=== PATIENT | male | born 1945 | race African-American/Black ===

== ENCOUNTER 2022-02-06 13:47 | Inpatient (IN) | payer MEDICAID, MEDICARE, OTHER ==
[~2022-02-06 13:47] MED LIST: Heparin 1,000 UNITS/ML VIAL ONE; Iopamidol-370 76% 500 ML 1 ML ONE
[2022-02-06] MEDS ORDERED: Vancomycin 1 GM/200 ML BAG ONE (14:37)
[2022-02-06] MEDS ORDERED: cefTRIAXone\\ROCEPHIN 2 GM VIAL ONE (14:37)
[2022-02-06 14:43] LABS: Mean Corpuscular HGB CONC 30.2 g/dL (32.0-36.0); Mean Corpuscular Hemoglobin 28.8 pg (27.0-31.0); Mean Corpuscular Volume 95.3 fL (78.0-98.0); RBC Distribution Width 14.8 % (11.5-14.5); Red Blood Cell (RBC) Count 4.17 mill/uL (4.70-6.10); White Blood Cell (WBC) Count 7.1 thou/uL (4.8-10.8)
[2022-02-06 14:44] LABS: #Lymphocytes 2.4 thou/uL (1.20-3.40); #Monocytes 0.5 thou/uL (0.11-0.59); #Neutrophils 4.1 thou/uL (1.40-6.50); %Basophils 0.7 % (0.0-1.0); %Eosinophils 0.3 % (0.0-10.0); %Lymphocytes 34.1 % (21.0-51.0); %Monocytes 6.8 % (0.0-10.0); %Neutrophils 58.2 % (42.0-75.0)
[2022-02-06 14:50] LABS: PTT 40.7 sec (22.9-36.1)
[2022-02-06 14:51] LABS: INR-International Normal Ratio 1.7
[2022-02-06 14:53] LABS: ALT (SGPT) 25 U/L (8-55); AST (SGOT) 29 U/L (5-34); Albumin 3.7 g/dL (3.4-4.8); Alkaline Phosphatase 91 U/L (40-110); Anion Gap 12 mmol/L (10-20); BUN (Urea Nitrogen) 19 mg/dL (8.4-25.7); Bilirubin, Total 1.4 mg/dL (0.2-1.2); Calc. Creatinine Clearance 0 mL/min (70-130); Calcium 9.4 mg/dL (7.8-10.44); Carbon Dioxide 22 mmol/L (23-31); Chloride 110 mmol/L (98-107); Estimated GFR 56; Globulin 4.4 g/dL (2.4-3.5); Glucose 88 mg/dL (83-110); Potassium 5.1 mmol/L (3.5-5.1); Protein, Total 8.1 g/dL (5.8-8.1); Sodium 139 mmol/L (136-145)
[2022-02-06 15:02] LABS: Mean Platelet Volume 11.7 fL (7.4-10.4); Platelet Count 161 thou/uL (130-400)
[2022-02-06 15:03] LABS: Large Platelets SLIGHT; MDiff Complete? YES; Platelet Morphology Comment Appears Adequate; RBC Morphology Normal
[2022-02-06 17:19] LABS: Lactic Acid 2.9 mmol/L (0.5-2.2)
[2022-02-06 17:32] LABS: Bilirubin Negative (Negative); Blood, Urine 3+ (Negative); Clarity Clear (Clear); Glucose, Urine (Dipstick) 300 mg/dL (Negative); Ketone, Urine Negative (Negative); Leukocyte Negative Leu/uL (Negative); Nitrite Negative (Negative); Protein, Urine (Dipstick) 50 mg/dL (Neg-Trace); RBC/HPF Greater than 50 HPF (0-3); Squamous Epithelial None Seen HPF (0-3); Urobilinogen 6 mg/dL (Less than 2)
[2022-02-06 17:37] LABS: Bacteria/HPF 1+ HPF (None Seen); Specific Gravity, Urine 1.049 (1.002-1.036)
[2022-02-06] MEDS ORDERED: Acetaminophen 325 MG TAB PO PRN (18:45)
[2022-02-06] MEDS ORDERED: Ondansetron ODT 4 MG TAB SL PRN (18:45)
[2022-02-06] MEDS ORDERED: Ondansetron PF 4 MG/2 ML Vial IVP PRN (18:45)
[2022-02-06] MEDS ORDERED: Lactated Ringer's 250 ML IV SCH (19:15)
[2022-02-06] MEDS ORDERED: Ondansetron ODT 4 MG TAB PO PRN (19:34)
[2022-02-06] MEDS ORDERED: Bisacodyl 5 MG TAB PO PRN (19:34)
[2022-02-06] MEDS ORDERED: Senokot S 8.6-50 MG TAB PO PRN (19:34)
[2022-02-06 20:25] LABS: SARS-CoV-2 NAA Rapid Test Not Detected (NotDetected)
[2022-02-06] MEDS: Famotidine/PF 20 mg/2ml Vial SLOW IVP SCH (20:25)
[2022-02-06] MEDS: Lactated Ringer's 1,000 ML IV SCH (20:26)
[2022-02-06] MEDS: Famotidine 20 MG TAB PO SCH (21:01)
[2022-02-07] MEDS: Lactated Ringer's 1,000 ML IV SCH (03:28)
[2022-02-07 06:24] LABS: Hemoglobin 10.8 g/dL (14.0-18.0); Mean Corpuscular HGB CONC 30.1 g/dL (32.0-36.0); Mean Corpuscular Volume 96.5 fL (78.0-98.0); Mean Platelet Volume 12.3 fL (7.4-10.4); Platelet Count 122 thou/uL (130-400); RBC Distribution Width 14.9 % (11.5-14.5); Red Blood Cell (RBC) Count 3.72 mill/uL (4.70-6.10); White Blood Cell (WBC) Count 6.6 thou/uL (4.8-10.8)
[2022-02-07 06:57] LABS: ALT (SGPT) 24 U/L (8-55); AST (SGOT) 45 U/L (5-34); Albumin 2.6 g/dL (3.4-4.8); Alkaline Phosphatase 69 U/L (40-110); Anion Gap 16 mmol/L (10-20); BUN (Urea Nitrogen) 19 mg/dL (8.4-25.7); Bilirubin, Total 0.7 mg/dL (0.2-1.2); Calc. Creatinine Clearance 42 mL/min (70-130); Calcium 8.3 mg/dL (7.8-10.44); Carbon Dioxide 13 mmol/L (23-31); Chloride 114 mmol/L (98-107); Estimated GFR 72; Globulin 4.3 g/dL (2.4-3.5); Glucose 63 mg/dL (83-110); Potassium 5.2 mmol/L (3.5-5.1); Protein, Total 6.9 g/dL (5.8-8.1); Sodium 138 mmol/L (136-145)
[2022-02-07] MEDS ORDERED: Vancomycin 1 GM in Premix Bag 1 BAG IVPB SCH (08:00)
[2022-02-07 08:47] LABS: Actual Bicarbonate (HCO3v) 18 mEq/L (22-28); Base Excess -4.3 mEq/L (-2.0 to +3.0); Calcium, Ionized (venous) 0.97 mmol/L (1.16-1.32); Chloride (VBG) 111 mmol/L (98-106); Hemoglobin (Hb) 12.5 g/dL (12.6-17.4); Potassium (VBG) 4.28 mmol/L (3.70-5.30); Sodium 139.9 mmol/L (133-146); pH (venous) 7.45 (7.32-7.43)
[2022-02-07 09:10] LABS: CK (CPK) 80 U/L (30-200); Phosphorus 2.9 mg/dL (2.3-4.7)
[2022-02-07] MEDS: Cefepime 2 GM in Sodium Chloride 0.9% 100 ML IVPB SCH ×2 (09:13→20:17)
[2022-02-07] MEDS: metroNIDAZOLE 500 MG in Premix Bag 1 BAG IVPB SCH ×2 (09:14→17:58)
[2022-02-07 09:15] LABS: Lactic Acid 2.1 mmol/L (0.5-2.2)
[2022-02-07] MEDS: Aspirin 300 MG Suppository PR SCH (09:15)
[2022-02-07] MEDS ORDERED: Sodium Bicarb 50 MEQ/50 ML Abboject 8.4% SYRINGE IVP SCH (09:15)
[2022-02-07] MEDS ORDERED: Multivitamins, Adult 10 ML, Folic Acid 1 MG, Thiamine HCl 100 MG in Dextrose 5 %-0.45 %... IV SCH (10:00)
[2022-02-07] MEDS: Vancomycin HCl 750 MG in Sodium Chloride 0.9% 250 ML 250 ML IVPB SCH (11:17)
[2022-02-07 14:47] LABS: Anion Gap 12 mmol/L (10-20); BUN (Urea Nitrogen) 19 mg/dL (8.4-25.7); Calc. Creatinine Clearance 41 mL/min (70-130); Calcium 8.4 mg/dL (7.8-10.44); Carbon Dioxide 23 mmol/L (23-31); Chloride 110 mmol/L (98-107); Estimated GFR 69; Glucose 87 mg/dL (83-110); Potassium 4.1 mmol/L (3.5-5.1); Sodium 141 mmol/L (136-145)
[2022-02-07] MEDS ORDERED: D5 1/2 NS w/20 mEq KCL 1,000 ML IV SCH (18:00)
[2022-02-07] MEDS ORDERED: Sterile Water 10 ML VIAL FS PRN (19:45)
[2022-02-07] MEDS ORDERED: OLANZapine 10 MG VIAL IM SCH (19:45)
[2022-02-07] MEDS: Heparin 5,000 UNITS/ML VIAL SC SCH (20:19)
[2022-02-07] MEDS: Famotidine/PF 20 mg/2ml Vial SLOW IVP SCH (20:20)
[2022-02-07] MEDS: Famotidine 20 MG TAB PO SCH (20:22)
[2022-02-08] MEDS: metroNIDAZOLE 500 MG in Premix Bag 1 BAG IVPB SCH ×2 (02:27→09:33)
[2022-02-08 06:13] LABS: #Basophils 0.1 thou/uL (0.0-0.2); #Lymphocytes 2.3 thou/uL (1.20-3.40); #Monocytes 0.7 thou/uL (0.11-0.59); #Neutrophils 4.7 thou/uL (1.40-6.50); %Basophils 1.2 % (0.0-1.0); %Eosinophils 0.3 % (0.0-10.0); %Lymphocytes 29.6 % (21.0-51.0); %Monocytes 8.8 % (0.0-10.0); %Neutrophils 60.2 % (42.0-75.0); Hemoglobin 11.3 g/dL (14.0-18.0); Mean Corpuscular HGB CONC 29.8 g/dL (32.0-36.0); Mean Corpuscular Hemoglobin 28.9 pg (27.0-31.0); Mean Platelet Volume 12.6 fL (7.4-10.4); Platelet Count 76 thou/uL (130-400); Red Blood Cell (RBC) Count 3.92 mill/uL (4.70-6.10); White Blood Cell (WBC) Count 7.8 thou/uL (4.8-10.8)
[2022-02-08 06:30] LABS: ALT (SGPT) 29 U/L (8-55); AST (SGOT) 45 U/L (5-34); Alkaline Phosphatase 68 U/L (40-110); Anion Gap 17 mmol/L (10-20); BUN (Urea Nitrogen) 19 mg/dL (8.4-25.7); Bilirubin, Total 1.1 mg/dL (0.2-1.2); Calc. Creatinine Clearance 38 mL/min (70-130); Calcium 8.3 mg/dL (7.8-10.44); Carbon Dioxide 15 mmol/L (23-31); Chloride 112 mmol/L (98-107); Estimated GFR 64; Globulin 4.4 g/dL (2.4-3.5); Glucose 102 mg/dL (83-110); Magnesium 2.1 mg/dL (1.6-2.6); Phosphorus 2.9 mg/dL (2.3-4.7); Potassium 4.9 mmol/L (3.5-5.1); Protein, Total 7.4 g/dL (5.8-8.1); Sodium 139 mmol/L (136-145)
[2022-02-08] MEDS ORDERED: Sodium Bicarbonate 150 MEQ in Dextrose 5% in Water 1,000 ML IV SCH ×2 (08:00→14:00)
[2022-02-08] MEDS: Cefepime 2 GM in Sodium Chloride 0.9% 100 ML IVPB SCH (09:24)
[2022-02-08] MEDS: Heparin 5,000 UNITS/ML VIAL SC SCH (09:24)
[2022-02-08] MEDS: Aspirin 300 MG Suppository PR SCH (09:25)
[2022-02-08] MEDS ORDERED: Aspirin 81 mg Enteric Coated Tablet PO SCH (12:00)
[2022-02-08] MEDS: Vancomycin HCl 750 MG in Sodium Chloride 0.9% 250 ML 250 ML IVPB SCH (12:12)
[2022-02-08] MEDS ORDERED: metroNIDAZOLE 500 MG TAB PO SCH ×2 (15:00→18:00)
[2022-02-08] MEDS ORDERED: Piperacillin/Tazobactam 3.375 GM in Sodium Chloride 0.9% 100 ML IVPB SCH ×2 (17:30→17:45)
[2022-02-08] MEDS ORDERED: Mirtazapine 15 MG Soltab PO SCH (21:00)
[2022-02-08] MEDS: Piperacillin/Tazobactam 3.375 GM in Sodium Chloride 0.9% 100 ML IVPB SCH (21:03)
[2022-02-09] MEDS: Piperacillin/Tazobactam 3.375 GM in Sodium Chloride 0.9% 100 ML IVPB SCH ×3 (04:37→21:08)
[2022-02-09 08:08] LABS: INR-International Normal Ratio 1.8; PTT 28.8 sec (22.9-36.1)
[2022-02-09] MEDS ORDERED: Non-Formulary Item 1 EACH (Loratadine [Claritin] 10 MG Capsule) PO SCH (09:00)
[2022-02-09] MEDS ORDERED: Non-Formulary Item 1 EACH (Omeprazole [Omeprazole] 20 MG Capsule.Dr) PO SCH (09:00)
[2022-02-09 09:12] LABS: Albumin 2.8 g/dL (3.4-4.8)
[2022-02-09 09:13] LABS: Chloride 112 mmol/L (98-107); Sodium 138 mmol/L (136-145)
[2022-02-09 09:14] LABS: Calcium 8.3 mg/dL (7.8-10.44); Glucose 76 mg/dL (83-110)
[2022-02-09 09:15] LABS: Globulin 3.8 g/dL (2.4-3.5); Protein, Total 6.6 g/dL (5.8-8.1)
[2022-02-09 09:16] LABS: Anion Gap 13 mmol/L (10-20); Bilirubin, Total 0.7 mg/dL (0.2-1.2); Carbon Dioxide 17 mmol/L (23-31)
[2022-02-09 09:17] LABS: Alkaline Phosphatase 73 U/L (40-110)
[2022-02-09 09:18] LABS: Calc. Creatinine Clearance 42 mL/min (70-130); Estimated GFR 72
[2022-02-09 09:19] LABS: BUN (Urea Nitrogen) 18 mg/dL (8.4-25.7)
[2022-02-09 09:20] LABS: ALT (SGPT) 30 U/L (8-55); AST (SGOT) 41 U/L (5-34)
[2022-02-09] MEDS: Aspirin 81 mg Enteric Coated Tablet PO SCH (09:23)
[2022-02-09] MEDS: Loratadine 10 MG TAB PO SCH (09:24)
[2022-02-09 09:25] LABS: #Basophils 0.1 thou/uL (0.0-0.2); #Eosinphils 0.1 thou/uL (0.0-0.7); #Lymphocytes 2.1 thou/uL (1.20-3.40); #Monocytes 0.9 thou/uL (0.11-0.59); #Neutrophils 5.8 thou/uL (1.40-6.50); %Basophils 0.6 % (0.0-1.0); %Eosinophils 0.8 % (0.0-10.0); %Lymphocytes 23.1 % (21.0-51.0); %Monocytes 9.9 % (0.0-10.0); %Neutrophils 65.6 % (42.0-75.0); Hemoglobin 10.7 g/dL (14.0-18.0); Mean Corpuscular HGB CONC 29.5 g/dL (32.0-36.0); Mean Corpuscular Hemoglobin 28.4 pg (27.0-31.0); Mean Corpuscular Volume 96.3 fL (78.0-98.0); Mean Platelet Volume 12.4 fL (7.4-10.4); Platelet Count 117 thou/uL (130-400); RBC Distribution Width 14.9 % (11.5-14.5); Red Blood Cell (RBC) Count 3.78 mill/uL (4.70-6.10); White Blood Cell (WBC) Count 8.9 thou/uL (4.8-10.8)
[2022-02-09] MEDS: THIAMINE HCL IV SCH (11:54)
[2022-02-09] MEDS: [UNRECOGNIZED DRUG - OTHER] IV SCH (11:54)
[2022-02-09] MEDS: MULTIVITAMINS IV SCH (11:54)
[2022-02-09] MEDS: SODIUM BICARBONATE IV SCH (11:54)
[2022-02-09] MEDS: Budesonide 0.5 MG/2 ML NEB NEB SCH (18:54)
[2022-02-09] MEDS: Mirtazapine 30 MG Soltab PO SCH (20:04)
[2022-02-10] MEDS: Piperacillin/Tazobactam 3.375 GM in Sodium Chloride 0.9% 100 ML IVPB SCH ×3 (05:26→21:45)
[2022-02-10 06:35] LABS: #Eosinphils 0.1 thou/uL (0.0-0.7); #Lymphocytes 2.4 thou/uL (1.20-3.40); #Monocytes 0.9 thou/uL (0.11-0.59); #Neutrophils 6.1 thou/uL (1.40-6.50); %Basophils 0.5 % (0.0-1.0); %Eosinophils 0.6 % (0.0-10.0); %Lymphocytes 25.4 % (21.0-51.0); %Monocytes 9.4 % (0.0-10.0); %Neutrophils 64.1 % (42.0-75.0); Hemoglobin 10.3 g/dL (14.0-18.0); Mean Corpuscular HGB CONC 32.4 g/dL (32.0-36.0); Mean Corpuscular Hemoglobin 30.9 pg (27.0-31.0); Mean Corpuscular Volume 95.6 fL (78.0-98.0); Mean Platelet Volume 11.8 fL (7.4-10.4); Platelet Count 120 thou/uL (130-400); RBC Distribution Width 14.7 % (11.5-14.5); Red Blood Cell (RBC) Count 3.33 mill/uL (4.70-6.10); White Blood Cell (WBC) Count 9.4 thou/uL (4.8-10.8)
[2022-02-10 06:50] LABS: Anion Gap 10 mmol/L (10-20); BUN (Urea Nitrogen) 18 mg/dL (8.4-25.7); Calc. Creatinine Clearance 41 mL/min (70-130); Calcium 8.3 mg/dL (7.8-10.44); Carbon Dioxide 25 mmol/L (23-31); Chloride 108 mmol/L (98-107); Estimated GFR 69; Glucose 89 mg/dL (83-110); Magnesium 2.1 mg/dL (1.6-2.6); Phosphorus 2.6 mg/dL (2.3-4.7); Potassium 3.8 mmol/L (3.5-5.1); Sodium 139 mmol/L (136-145)
[2022-02-10] MEDS: Budesonide 0.5 MG/2 ML NEB NEB SCH ×2 (06:55→18:35)
[2022-02-10] MEDS: Loratadine 10 MG TAB PO SCH (09:09)
[2022-02-10] MEDS: Aspirin 81 mg Enteric Coated Tablet PO SCH (09:09)
[2022-02-10] MEDS: MULTIVITAMINS IV SCH (10:00)
[2022-02-10] MEDS: [UNRECOGNIZED DRUG - OTHER] IV SCH (10:00)
[2022-02-10] MEDS: THIAMINE HCL IV SCH (10:00)
[2022-02-10] MEDS: SODIUM BICARBONATE IV SCH (10:00)
[2022-02-10] MEDS ORDERED: Phytonadione 5 MG TAB PO SCH (10:30)
[2022-02-10] MEDS ORDERED: MULTIVITAMINS IV SCH (13:28)
[2022-02-10] MEDS ORDERED: SODIUM BICARBONATE IV SCH (13:28)
[2022-02-10] MEDS ORDERED: THIAMINE HCL IV SCH (13:28)
[2022-02-10] MEDS ORDERED: [UNRECOGNIZED DRUG - OTHER] IV SCH (13:28)
[2022-02-10] MEDS ORDERED: predniSONE 20 MG TAB PO SCH (14:00)
[2022-02-10] MEDS: Mirtazapine 30 MG Soltab PO SCH (20:38)
[2022-02-10] MEDS: Cyanocobalamin (Vitamin B-12) 1,000 MCG TAB PO SCH (20:38)
[2022-02-10] MEDS: pyridOXINE 50 MG (B6) TAB PO SCH (20:38)
[2022-02-11] MEDS: Piperacillin/Tazobactam 3.375 GM in Sodium Chloride 0.9% 100 ML IVPB SCH ×3 (05:04→20:40)
[2022-02-11 07:03] LABS: Anion Gap 11 mmol/L (10-20); BUN (Urea Nitrogen) 16 mg/dL (8.4-25.7); Calc. Creatinine Clearance 50 mL/min (70-130); Calcium 8.7 mg/dL (7.8-10.44); Carbon Dioxide 25 mmol/L (23-31); Chloride 107 mmol/L (98-107); Estimated GFR 88; Glucose 125 mg/dL (83-110); Potassium 4.3 mmol/L (3.5-5.1); Sodium 139 mmol/L (136-145)
[2022-02-11] MEDS: Budesonide 0.5 MG/2 ML NEB NEB SCH ×2 (08:00→18:46)
[2022-02-11 08:06] LABS: #Lymphocytes 0.9 thou/uL (1.20-3.40); #Monocytes 0.3 thou/uL (0.11-0.59); #Neutrophils 5.4 thou/uL (1.40-6.50); %Basophils 0.3 % (0.0-1.0); %Eosinophils 0.1 % (0.0-10.0); %Lymphocytes 14.1 % (21.0-51.0); %Neutrophils 81.5 % (42.0-75.0); Hemoglobin 9.8 g/dL (14.0-18.0); Hypochromia SLIGHT = 6-15 cells (100X) (0-5/hpf); Large Platelets SLIGHT; MDiff Complete? YES; Mean Corpuscular HGB CONC 30.9 g/dL (32.0-36.0); Mean Corpuscular Hemoglobin 29.7 pg (27.0-31.0); Mean Corpuscular Volume 96.1 fL (78.0-98.0); Mean Platelet Volume 11.8 fL (7.4-10.4); Platelet Count 127 thou/uL (130-400); Platelet Morphology Comment Appears Decreased; Polychromasia SLIGHT = 2-3 cells (100X) (0-2/hpf); RBC Distribution Width 14.7 % (11.5-14.5); Red Blood Cell (RBC) Count 3.31 mill/uL (4.70-6.10); White Blood Cell (WBC) Count 6.6 thou/uL (4.8-10.8)
[2022-02-11] MEDS: Folic Acid 1 MG TAB PO SCH (08:58)
[2022-02-11] MEDS: predniSONE 20 MG TAB PO SCH (08:58)
[2022-02-11] MEDS: Aspirin 81 mg Enteric Coated Tablet PO SCH (08:58)
[2022-02-11] MEDS: Thiamine 100 MG TAB PO SCH (08:59)
[2022-02-11] MEDS: Multivit, Therapeutic 1 TAB PO SCH (08:59)
[2022-02-11] MEDS: Loratadine 10 MG TAB PO SCH (08:59)
[2022-02-11] MEDS ORDERED: Phytonadione 5 MG TAB PO SCH (09:00)
[2022-02-11] MEDS: Mirtazapine 30 MG Soltab PO SCH (20:40)
[2022-02-11] MEDS: pyridOXINE 50 MG (B6) TAB PO SCH (20:40)
[2022-02-11] MEDS: Cyanocobalamin (Vitamin B-12) 1,000 MCG TAB PO SCH (20:40)
[2022-02-12] MEDS ORDERED: Morphine 2 MG/ML VIAL SLOW IVP PRN (04:08)
[2022-02-12] MEDS ORDERED: OLANZapine 2.5 MG TAB PO SCH (04:15)
[2022-02-12] MEDS: Piperacillin/Tazobactam 3.375 GM in Sodium Chloride 0.9% 100 ML IVPB SCH ×3 (04:36→23:26)
[2022-02-12] MEDS: Budesonide 0.5 MG/2 ML NEB NEB SCH ×2 (07:57→18:41)
[2022-02-12] MEDS ORDERED: Furosemide 20 MG/2 ML VIAL SLOW IVP SCH ×2 (08:15→16:00)
[2022-02-12] MEDS: Aspirin 81 mg Enteric Coated Tablet PO SCH (09:46)
[2022-02-12] MEDS: Thiamine 100 MG TAB PO SCH (09:46)
[2022-02-12] MEDS: Folic Acid 1 MG TAB PO SCH (09:46)
[2022-02-12] MEDS: Multivit, Therapeutic 1 TAB PO SCH (09:46)
[2022-02-12] MEDS: Loratadine 10 MG TAB PO SCH (09:46)
[2022-02-12] MEDS: predniSONE 20 MG TAB PO SCH ×2 (09:47→16:10)
[2022-02-12 13:42] LABS: Anion Gap 18 mmol/L (10-20); BUN (Urea Nitrogen) 25 mg/dL (8.4-25.7); Calc. Creatinine Clearance 38 mL/min (70-130); Calcium 9.1 mg/dL (7.8-10.44); Carbon Dioxide 20 mmol/L (23-31); Chloride 107 mmol/L (98-107); Estimated GFR 64; Glucose 109 mg/dL (83-110); Potassium 4.7 mmol/L (3.5-5.1); Sodium 140 mmol/L (136-145)
[2022-02-12] MEDS: Furosemide 20 MG/2 ML VIAL SLOW IVP SCH (13:46)
[2022-02-12 14:06] LABS: CKMB 2.3 ng/mL (0-6.6)
[2022-02-12] MEDS ORDERED: Iopamidol 370 76% 100 ML VIAL ONE (14:59)
[2022-02-12] MEDS: Calcium Carbonate 600 MG + Vit D TAB PO SCH (16:10)
[2022-02-12] MEDS: Albumin 25% 25 GM/100 ML BOT IVPB SCH ×2 (16:39→20:51)
[2022-02-12] MEDS ORDERED: Heparin 25,000 units/D5W 500 ML IVPB SCH (17:00)
[2022-02-12] MEDS: Cyanocobalamin (Vitamin B-12) 1,000 MCG TAB PO SCH (20:51)
[2022-02-12] MEDS: pyridOXINE 50 MG (B6) TAB PO SCH (20:51)
[2022-02-12] MEDS: Mirtazapine 30 MG Soltab PO SCH (20:51)
[2022-02-12] MEDS: Ondansetron PF 4 MG/2 ML Vial IVP PRN (23:55)
[2022-02-13] MEDS ORDERED: Furosemide 40 MG/4 ML VIAL SLOW IVP SCH (01:15)
[2022-02-13] MEDS: Albumin 25% 25 GM/100 ML BOT IVPB SCH ×3 (03:25→16:59)
[2022-02-13] MEDS: Piperacillin/Tazobactam 3.375 GM in Sodium Chloride 0.9% 100 ML IVPB SCH ×3 (05:31→21:01)
[2022-02-13] MEDS: Furosemide 20 MG/2 ML VIAL SLOW IVP SCH ×2 (05:31→15:34)
[2022-02-13] MEDS: Budesonide 0.5 MG/2 ML NEB NEB SCH ×2 (07:36→18:36)
[2022-02-13 08:48] LABS: PTT 149.2 sec (22.9-36.1)
[2022-02-13] MEDS: Folic Acid 1 MG TAB PO SCH (09:36)
[2022-02-13] MEDS: predniSONE 20 MG TAB PO SCH ×2 (09:36→17:00)
[2022-02-13] MEDS: Calcium Carbonate 600 MG + Vit D TAB PO SCH ×2 (09:36→17:00)
[2022-02-13] MEDS: Thiamine 100 MG TAB PO SCH (09:36)
[2022-02-13] MEDS: Loratadine 10 MG TAB PO SCH (09:36)
[2022-02-13] MEDS: Multivit, Therapeutic 1 TAB PO SCH (09:37)
[2022-02-13] MEDS: Aspirin 81 mg Enteric Coated Tablet PO SCH (09:37)
[2022-02-13 09:51] LABS: Band 1 % (5-11); Hemoglobin 11.1 g/dL (14.0-18.0); Lymphocytes 24 % (21-51); MDiff Complete? YES; Mean Corpuscular HGB CONC 30.2 g/dL (32.0-36.0); Mean Corpuscular Hemoglobin 28.7 pg (27.0-31.0); Mean Corpuscular Volume 94.9 fL (78.0-98.0); Mean Platelet Volume 12.4 fL (7.4-10.4); Neutrophil 75 % (42-75); Nucleated RBC 1 % (0); Platelet Count 116 thou/uL (130-400); Platelet Morphology Comment Appears Decreased; Polychromasia SLIGHT = 2-3 cells (100X) (0-2/hpf); RBC Distribution Width 14.9 % (11.5-14.5); Red Blood Cell (RBC) Count 3.85 mill/uL (4.70-6.10); White Blood Cell (WBC) Count 8.2 thou/uL (4.8-10.8)
[2022-02-13 09:53] LABS: ALT (SGPT) 37 U/L (8-55); AST (SGOT) 62 U/L (5-34); Albumin 3.3 g/dL (3.4-4.8); Alkaline Phosphatase 55 U/L (40-110); Anion Gap 23 mmol/L (10-20); BUN (Urea Nitrogen) 32 mg/dL (8.4-25.7); Calc. Creatinine Clearance 34 mL/min (70-130); Carbon Dioxide 14 mmol/L (23-31); Chloride 106 mmol/L (98-107); Estimated GFR 50; Globulin 4.5 g/dL (2.4-3.5); Glucose 104 mg/dL (83-110); Magnesium 2.2 mg/dL (1.6-2.6); Potassium 5.3 mmol/L (3.5-5.1); Protein, Total 7.8 g/dL (5.8-8.1); Sodium 138 mmol/L (136-145)
[2022-02-13 15:52] VITALS: BMI 19.3
[2022-02-13] MEDS: Mirtazapine 30 MG Soltab PO SCH (21:02)
[2022-02-13] MEDS: pyridOXINE 50 MG (B6) TAB PO SCH (21:02)
[2022-02-13] MEDS: Cyanocobalamin (Vitamin B-12) 1,000 MCG TAB PO SCH (21:02)
[2022-02-14 02:32] LABS: PTT Greater than 250.0 sec (22.9-36.1)
[2022-02-14] MEDS: Piperacillin/Tazobactam 3.375 GM in Sodium Chloride 0.9% 100 ML IVPB SCH ×3 (05:13→21:00)
[2022-02-14] MEDS: Furosemide 20 MG/2 ML VIAL SLOW IVP SCH ×2 (05:13→15:22)
[2022-02-14] MEDS: Budesonide 0.5 MG/2 ML NEB NEB SCH ×2 (07:15→19:16)
[2022-02-14] MEDS: Folic Acid 1 MG TAB PO SCH (08:45)
[2022-02-14] MEDS: Loratadine 10 MG TAB PO SCH (08:45)
[2022-02-14] MEDS: Thiamine 100 MG TAB PO SCH (08:45)
[2022-02-14] MEDS: Aspirin 81 mg Enteric Coated Tablet PO SCH (08:45)
[2022-02-14] MEDS: Calcium Carbonate 600 MG + Vit D TAB PO SCH ×2 (08:45→17:04)
[2022-02-14] MEDS: Multivit, Therapeutic 1 TAB PO SCH (08:45)
[2022-02-14] MEDS: predniSONE 20 MG TAB PO SCH ×2 (08:45→17:04)
[2022-02-14] MEDS ORDERED: Empagliflozin 10 MG TAB PO SCH (14:00)
[2022-02-14] MEDS: Heparin 10,000 UNITS/ 10 ML VIAL SLOW IVP SCH (16:49)
[2022-02-14] MEDS: Cyanocobalamin (Vitamin B-12) 1,000 MCG TAB PO SCH (21:00)
[2022-02-14] MEDS: pyridOXINE 50 MG (B6) TAB PO SCH (21:00)
[2022-02-14] MEDS: Mirtazapine 30 MG Soltab PO SCH (21:01)
[2022-02-14 22:10] LABS: PTT 133.7 sec (22.9-36.1)
[2022-02-14] MEDS ORDERED: Morphine 2 MG/ML VIAL SLOW IVP SCH (23:00)
[2022-02-15 04:36] LABS: ALT (SGPT) 58 U/L (8-55); AST (SGOT) 83 U/L (5-34); Albumin 3.7 g/dL (3.4-4.8); Alkaline Phosphatase 65 U/L (40-110); Anion Gap 22 mmol/L (10-20); BUN (Urea Nitrogen) 41 mg/dL (8.4-25.7); Bilirubin, Total 1.1 mg/dL (0.2-1.2); Calc. Creatinine Clearance 28 mL/min (70-130); Calcium 8.8 mg/dL (7.8-10.44); Carbon Dioxide 19 mmol/L (23-31); Chloride 104 mmol/L (98-107); Estimated GFR 40; Globulin 3.5 g/dL (2.4-3.5); Glucose 105 mg/dL (83-110); Potassium 5.4 mmol/L (3.5-5.1); Protein, Total 7.2 g/dL (5.8-8.1); Sodium 140 mmol/L (136-145)
[2022-02-15 05:11] LABS: Magnesium 2.4 mg/dL (1.6-2.6); Phosphorus 4.5 mg/dL (2.3-4.7)
[2022-02-15] MEDS: Furosemide 20 MG/2 ML VIAL SLOW IVP SCH ×2 (05:20→15:30)
[2022-02-15] MEDS: Piperacillin/Tazobactam 3.375 GM in Sodium Chloride 0.9% 100 ML IVPB SCH ×3 (05:20→23:13)
[2022-02-15] MEDS ORDERED: Morphine 2 MG/ML VIAL SLOW IVP SCH (05:30)
[2022-02-15] MEDS: Heparin 10,000 UNITS/ 10 ML VIAL SLOW IVP SCH (05:53)
[2022-02-15] MEDS ORDERED: Lidocaine 2% Viscous Solution 10 ML, Aluminum & Magnesium Hydroxide 30 ML SSW SCH (06:00)
[2022-02-15] MEDS ORDERED: Simethicone Chewable 80 MG TAB PO SCH (06:00)
[2022-02-15] MEDS: Budesonide 0.5 MG/2 ML NEB NEB SCH ×2 (06:50→19:19)
[2022-02-15] MEDS ORDERED: Empagliflozin 10 MG TAB PO SCH (09:00)
[2022-02-15] MEDS: Folic Acid 1 MG TAB PO SCH (09:28)
[2022-02-15] MEDS: Multivit, Therapeutic 1 TAB PO SCH (09:28)
[2022-02-15] MEDS: predniSONE 20 MG TAB PO SCH (09:28)
[2022-02-15] MEDS: Loratadine 10 MG TAB PO SCH (09:28)
[2022-02-15] MEDS: Thiamine 100 MG TAB PO SCH (09:28)
[2022-02-15] MEDS: Calcium Carbonate 600 MG + Vit D TAB PO SCH ×2 (09:28→17:27)
[2022-02-15] MEDS: Aspirin 81 mg Enteric Coated Tablet PO SCH (09:28)
[2022-02-15] MEDS ORDERED: Furosemide 40 MG/4 ML VIAL SLOW IVP SCH (10:00)
[2022-02-15 11:05] LABS: Base Excess (BEa) -0.9 mEq/L (-2.0 to +3.0); CO2 Tension 40.6 mmHg (35.0-45.0); Calcium, Ionized (arterial) 1.13 mmol/L (1.12-1.30); Carboxyhemoglobin (COHb) 0.5 gm% (0.0-3.0); Hemoglobin (Hb) 11.1 g/dL (14.0-18.0); O2 Tension (PaO2), arterial 75.2 mmHg (> 70.0); Potassium - ABG Lab 4.24 mmol/L (3.70-5.30); pH, Arterial 7.39 (7.35-7.45)
[2022-02-15 11:07] LABS: Puncture Site RBA
[2022-02-15 11:59] LABS: PTT 181.6 sec (22.9-36.1)
[2022-02-15 12:42] LABS: Hemoglobin 10.3 g/dL (14.0-18.0); Hypochromia SLIGHT = 6-15 cells (100X) (0-5/hpf); Large Platelets SLIGHT; Lymphocytes 18 % (21-51); MDiff Complete? YES; Mean Corpuscular Hemoglobin 28.3 pg (27.0-31.0); Mean Corpuscular Volume 94.4 fL (78.0-98.0); Mean Platelet Volume 12.9 fL (7.4-10.4); Monocytes 19 % (0-10); Neutrophil 62 % (42-75); Nucleated RBC 4 % (0); Ovalocytes SLIGHT = 2-5 cells (100X) (0-1/hpf); Platelet Count 124 thou/uL (130-400); Platelet Morphology Comment Appears Decreased; Polychromasia SLIGHT = 2-3 cells (100X) (0-2/hpf); RBC Distribution Width 15.2 % (11.5-14.5); Reactive Lymphocytes 1 % (0-10); Red Blood Cell (RBC) Count 3.65 mill/uL (4.70-6.10); Target Cells SLIGHT = 2-5 cells (100X) (0-1/hpf); White Blood Cell (WBC) Count 10.9 thou/uL (4.8-10.8)
[2022-02-15 14:45] LABS: Troponin I 0.067 ng/mL (< 0.028)
[2022-02-15 14:58] LABS: Anion Gap 23 mmol/L (10-20); BUN (Urea Nitrogen) 45 mg/dL (8.4-25.7); Calc. Creatinine Clearance 27 mL/min (70-130); Calcium 9.2 mg/dL (7.8-10.44); Carbon Dioxide 21 mmol/L (23-31); Chloride 103 mmol/L (98-107); Estimated GFR 38; Glucose 91 mg/dL (83-110); Potassium 4.6 mmol/L (3.5-5.1); Sodium 142 mmol/L (136-145)
[2022-02-15] MEDS: hydrALAZINE 25 MG TAB PO SCH ×2 (15:31→20:05)
[2022-02-15] MEDS: Mirtazapine 30 MG Soltab PO SCH (20:05)
[2022-02-15] MEDS: Apixaban 5 MG TAB PO SCH (20:05)
[2022-02-15] MEDS: Cyanocobalamin (Vitamin B-12) 1,000 MCG TAB PO SCH (20:05)
[2022-02-15] MEDS: pyridOXINE 50 MG (B6) TAB PO SCH (20:05)
[2022-02-16] MEDS: Piperacillin/Tazobactam 3.375 GM in Sodium Chloride 0.9% 100 ML IVPB SCH ×3 (00:24→14:41)
[2022-02-16 05:01] LABS: Anion Gap 24 mmol/L (10-20); BUN (Urea Nitrogen) 56 mg/dL (8.4-25.7); Calc. Creatinine Clearance 26 mL/min (70-130); Calcium 9.7 mg/dL (7.8-10.44); Carbon Dioxide 19 mmol/L (23-31); Chloride 102 mmol/L (98-107); Estimated GFR 37; Glucose 97 mg/dL (83-110); Potassium 4.2 mmol/L (3.5-5.1); Sodium 141 mmol/L (136-145)
[2022-02-16 05:20] LABS: Band 1 % (5-11); Hemoglobin 10.1 g/dL (14.0-18.0); Hypochromia SLIGHT = 6-15 cells (100X) (0-5/hpf); Large Platelets SLIGHT; Lymphocytes 9 % (21-51); MDiff Complete? YES; Mean Corpuscular HGB CONC 28.9 g/dL (32.0-36.0); Mean Corpuscular Hemoglobin 27.6 pg (27.0-31.0); Mean Corpuscular Volume 95.6 fL (78.0-98.0); Mean Platelet Volume 13.5 fL (7.4-10.4); Monocytes 8 % (0-10); Neutrophil 82 % (42-75); Nucleated RBC 4 % (0); Platelet Count 119 thou/uL (130-400); Platelet Morphology Comment Appears Decreased; RBC Distribution Width 15.2 % (11.5-14.5); Red Blood Cell (RBC) Count 3.67 mill/uL (4.70-6.10); White Blood Cell (WBC) Count 8.8 thou/uL (4.8-10.8)
[2022-02-16] MEDS: Furosemide 20 MG/2 ML VIAL SLOW IVP SCH ×2 (05:34→14:41)
[2022-02-16] MEDS: Budesonide 0.5 MG/2 ML NEB NEB SCH ×2 (06:57→19:37)
[2022-02-16] MEDS ORDERED: DOBUTamine 500 mg/250 ml 500 MG in Premix Bag 1 BAG IVPB SCH (08:00)
[2022-02-16] MEDS: Calcium Carbonate 600 MG + Vit D TAB PO SCH ×2 (09:55→17:13)
[2022-02-16] MEDS: Apixaban 5 MG TAB PO SCH ×2 (09:56→21:27)
[2022-02-16] MEDS: hydrALAZINE 25 MG TAB PO SCH ×3 (09:56→21:27)
[2022-02-16] MEDS: Aspirin 81 mg Enteric Coated Tablet PO SCH (09:56)
[2022-02-16] MEDS: Loratadine 10 MG TAB PO SCH (09:56)
[2022-02-16] MEDS: Multivit, Therapeutic 1 TAB PO SCH (09:56)
[2022-02-16] MEDS: Folic Acid 1 MG TAB PO SCH (09:56)
[2022-02-16] MEDS: Thiamine 100 MG TAB PO SCH (09:56)
[2022-02-16] MEDS: Mirtazapine 30 MG Soltab PO SCH (21:27)
[2022-02-16] MEDS: Mirtazapine 15 MG TAB PO SCH (21:27)
[2022-02-16] MEDS: pyridOXINE 50 MG (B6) TAB PO SCH (21:27)
[2022-02-16] MEDS: Cyanocobalamin (Vitamin B-12) 1,000 MCG TAB PO SCH (21:27)
[2022-02-17] MEDS: Piperacillin/Tazobactam 3.375 GM in Sodium Chloride 0.9% 100 ML IVPB SCH ×3 (00:11→19:32)
[2022-02-17 05:06] LABS: Troponin I 0.106 ng/mL (< 0.028)
[2022-02-17 05:07] LABS: Anion Gap 17 mmol/L (10-20); BUN (Urea Nitrogen) 66 mg/dL (8.4-25.7); Calc. Creatinine Clearance 26 mL/min (70-130); Calcium 9.1 mg/dL (7.8-10.44); Carbon Dioxide 26 mmol/L (23-31); Chloride 104 mmol/L (98-107); Estimated GFR 36; Glucose 106 mg/dL (83-110); Potassium 3.8 mmol/L (3.5-5.1); Sodium 143 mmol/L (136-145)
[2022-02-17] MEDS: Furosemide 20 MG/2 ML VIAL SLOW IVP SCH ×2 (05:10→14:46)
[2022-02-17] MEDS: Budesonide 0.5 MG/2 ML NEB NEB SCH ×2 (06:55→19:05)
[2022-02-17 07:17] LABS: Hemoglobin 7.9 g/dL (14.0-18.0); Mean Corpuscular HGB CONC 30.9 g/dL (32.0-36.0); Mean Corpuscular Hemoglobin 28.5 pg (27.0-31.0); Mean Corpuscular Volume 92.2 fL (78.0-98.0); Mean Platelet Volume 12.7 fL (7.4-10.4); Platelet Count 100 thou/uL (130-400); RBC Distribution Width 14.5 % (11.5-14.5); Red Blood Cell (RBC) Count 2.76 mill/uL (4.70-6.10)
[2022-02-17] MEDS: Thiamine 100 MG TAB PO SCH (08:02)
[2022-02-17] MEDS: Apixaban 5 MG TAB PO SCH (08:02)
[2022-02-17] MEDS: hydrALAZINE 25 MG TAB PO SCH (08:02)
[2022-02-17] MEDS: Loratadine 10 MG TAB PO SCH (08:02)
[2022-02-17] MEDS: Multivit, Therapeutic 1 TAB PO SCH (08:02)
[2022-02-17] MEDS: Folic Acid 1 MG TAB PO SCH (08:02)
[2022-02-17] MEDS: Calcium Carbonate 600 MG + Vit D TAB PO SCH ×2 (08:02→18:31)
[2022-02-17] MEDS: Aspirin 81 mg Enteric Coated Tablet PO SCH (08:02)
[2022-02-17 09:40] LABS: Band 6 % (5-11); Hypochromia SLIGHT = 6-15 cells (100X) (0-5/hpf); Lymphocytes 10 % (21-51); MDiff Complete? YES; Monocytes 5 % (0-10); Neutrophil 79 % (42-75); Nucleated RBC 1 % (0); Platelet Morphology Comment Appears Decreased; Polychromasia SLIGHT = 2-3 cells (100X) (0-2/hpf)
[2022-02-17] MEDS: hydrALAZINE 10 MG TAB PO SCH ×2 (14:52→20:36)
[2022-02-17] MEDS ORDERED: hydrALAZINE 25 MG TAB PO SCH (15:00)
[2022-02-17 15:55] LABS: Hemoglobin 7.4 g/dL (14.0-18.0); Mean Corpuscular HGB CONC 30.1 g/dL (32.0-36.0); Mean Corpuscular Hemoglobin 27.9 pg (27.0-31.0); Mean Corpuscular Volume 92.6 fL (78.0-98.0); Mean Platelet Volume 12.9 fL (7.4-10.4); Platelet Count 97 thou/uL (130-400); RBC Distribution Width 14.5 % (11.5-14.5); Red Blood Cell (RBC) Count 2.65 mill/uL (4.70-6.10); White Blood Cell (WBC) Count 9.8 thou/uL (4.8-10.8)
[2022-02-17 15:56] LABS: Burr Cells SLIGHT = 2-5 cells (100X) (0-1/hpf); Hypochromia SLIGHT = 6-15 cells (100X) (0-5/hpf); Lymphocytes 10 % (21-51); MDiff Complete? YES; Monocytes 8 % (0-10); Neutrophil 81 % (42-75); Nucleated RBC 18 % (0); Ovalocytes SLIGHT = 2-5 cells (100X) (0-1/hpf); Platelet Morphology Comment Appears Decreased; Polychromasia SLIGHT = 2-3 cells (100X) (0-2/hpf); Reactive Lymphocytes 1 % (0-10); Stomatocytes SLIGHT = 2-5 cells (100X) (0-1/hpf); Target Cells MODERATE= 6-15 cells (100X) (0-1/hpf)
[2022-02-17 15:58] LABS: Hemoglobin 7.5 g/dL (14.0-18.0); Hypochromia SLIGHT = 6-15 cells (100X) (0-5/hpf); Lymphocytes 10 % (21-51); MDiff Complete? YES; Mean Corpuscular HGB CONC 30.4 g/dL (32.0-36.0); Mean Corpuscular Hemoglobin 28.1 pg (27.0-31.0); Mean Corpuscular Volume 92.5 fL (78.0-98.0); Mean Platelet Volume 12.7 fL (7.4-10.4); Monocytes 8 % (0-10); Neutrophil 81 % (42-75); Ovalocytes SLIGHT = 2-5 cells (100X) (0-1/hpf); Platelet Count 100 thou/uL (130-400); Platelet Morphology Comment Appears Decreased; Polychromasia SLIGHT = 2-3 cells (100X) (0-2/hpf); RBC Distribution Width 14.5 % (11.5-14.5); Reactive Lymphocytes 1 % (0-10); Red Blood Cell (RBC) Count 2.65 mill/uL (4.70-6.10); Stomatocytes SLIGHT = 2-5 cells (100X) (0-1/hpf); Target Cells MODERATE= 6-15 cells (100X) (0-1/hpf); White Blood Cell (WBC) Count 9.8 thou/uL (4.8-10.8)
[2022-02-17 16:07] LABS: Anion Gap 13 mmol/L (10-20); BUN (Urea Nitrogen) 64 mg/dL (8.4-25.7); Calc. Creatinine Clearance 29 mL/min (70-130); Calcium 8.8 mg/dL (7.8-10.44); Carbon Dioxide 29 mmol/L (23-31); Chloride 105 mmol/L (98-107); Estimated GFR 40; Glucose 118 mg/dL (83-110); Potassium 3.8 mmol/L (3.5-5.1); Sodium 143 mmol/L (136-145)
[2022-02-17 16:26] LABS: PTT 52.1 sec (22.9-36.1); Prothrombin Time 63.5 sec (12.0-14.7)
[2022-02-17 16:42] LABS: INR-International Normal Ratio 7.2
[2022-02-17] MEDS ORDERED: Phytonadione 10 MG/ML AMP SC SCH (18:30)
[2022-02-17] MEDS ORDERED: Amoxicillin/Potassium Clav 500 MG TAB PO SCH (18:44)
[2022-02-17] MEDS: Cyanocobalamin (Vitamin B-12) 1,000 MCG TAB PO SCH (20:36)
[2022-02-17] MEDS: pyridOXINE 50 MG (B6) TAB PO SCH (20:36)
[2022-02-17] MEDS: Mirtazapine 30 MG Soltab PO SCH (20:37)
[2022-02-17] MEDS: Mirtazapine 15 MG TAB PO SCH (20:37)
[2022-02-18] MEDS: Piperacillin/Tazobactam 3.375 GM in Sodium Chloride 0.9% 100 ML IVPB SCH ×3 (00:05→15:08)
[2022-02-18] MEDS ORDERED: Acetaminophen 325 MG TAB PO PRN (03:20)
[2022-02-18] MEDS: Morphine 2 MG/ML VIAL SLOW IVP PRN ×2 (03:57→20:47)
[2022-02-18 05:02] LABS: Prothrombin Time 40.7 sec (12.0-14.7)
[2022-02-18 05:05] LABS: INR-International Normal Ratio 4.1
[2022-02-18 05:15] LABS: ALT (SGPT) 139 U/L (8-55); AST (SGOT) 123 U/L (5-34); Albumin 3.7 g/dL (3.4-4.8); Alkaline Phosphatase 67 U/L (40-110); Anion Gap 14 mmol/L (10-20); BUN (Urea Nitrogen) 59 mg/dL (8.4-25.7); Bilirubin, Total 1.5 mg/dL (0.2-1.2); Calc. Creatinine Clearance 33 mL/min (70-130); Calcium 8.9 mg/dL (7.8-10.44); Carbon Dioxide 28 mmol/L (23-31); Chloride 104 mmol/L (98-107); Estimated GFR 49; Globulin 3.1 g/dL (2.4-3.5); Glucose 95 mg/dL (83-110); Potassium 3.8 mmol/L (3.5-5.1); Protein, Total 6.8 g/dL (5.8-8.1); Sodium 142 mmol/L (136-145)
[2022-02-18 05:45] LABS: Hemoglobin 7.7 g/dL (14.0-18.0); Hypochromia SLIGHT = 6-15 cells (100X) (0-5/hpf); Large Platelets SLIGHT; Lymphocytes 14 % (21-51); MDiff Complete? YES; Mean Corpuscular HGB CONC 29.4 g/dL (32.0-36.0); Mean Corpuscular Hemoglobin 27.7 pg (27.0-31.0); Mean Corpuscular Volume 94.1 fL (78.0-98.0); Mean Platelet Volume 13.2 fL (7.4-10.4); Monocytes 11 % (0-10); Neutrophil 75 % (42-75); Nucleated RBC 14 % (0); Platelet Count 103 thou/uL (130-400); Platelet Morphology Comment Appears Decreased; RBC Distribution Width 14.7 % (11.5-14.5); Red Blood Cell (RBC) Count 2.77 mill/uL (4.70-6.10); White Blood Cell (WBC) Count 10.6 thou/uL (4.8-10.8)
[2022-02-18] MEDS: Furosemide 20 MG/2 ML VIAL SLOW IVP SCH ×2 (05:50→15:07)
[2022-02-18] MEDS: Budesonide 0.5 MG/2 ML NEB NEB SCH ×2 (06:54→18:48)
[2022-02-18] MEDS: Calcium Carbonate 600 MG + Vit D TAB PO SCH ×2 (09:35→17:54)
[2022-02-18] MEDS: Folic Acid 1 MG TAB PO SCH (09:36)
[2022-02-18] MEDS: Aspirin 81 mg Enteric Coated Tablet PO SCH (09:36)
[2022-02-18] MEDS: hydrALAZINE 10 MG TAB PO SCH ×3 (09:36→20:46)
[2022-02-18] MEDS: Apixaban 5 MG TAB PO SCH ×2 (09:36→20:44)
[2022-02-18] MEDS: Thiamine 100 MG TAB PO SCH (09:37)
[2022-02-18] MEDS: Loratadine 10 MG TAB PO SCH (09:37)
[2022-02-18] MEDS: Multivit, Therapeutic 1 TAB PO SCH (09:37)
[2022-02-18] MEDS ORDERED: DOBUTamine 500 mg/250 ml 500 MG in Premix Bag 1 BAG IVPB SCH (10:40)
[2022-02-18] MEDS: pyridOXINE 50 MG (B6) TAB PO SCH (20:43)
[2022-02-18] MEDS: Cyanocobalamin (Vitamin B-12) 1,000 MCG TAB PO SCH (20:43)
[2022-02-18] MEDS: Mirtazapine 30 MG Soltab PO SCH (20:44)
[2022-02-18] MEDS: Mirtazapine 15 MG TAB PO SCH (20:46)
[2022-02-19] MEDS: Piperacillin/Tazobactam 3.375 GM in Sodium Chloride 0.9% 100 ML IVPB SCH ×4 (00:19→23:02)
[2022-02-19 05:24] LABS: Anion Gap 17 mmol/L (10-20); BUN (Urea Nitrogen) 54 mg/dL (8.4-25.7); Calc. Creatinine Clearance 36 mL/min (70-130); Carbon Dioxide 25 mmol/L (23-31); Chloride 102 mmol/L (98-107); Estimated GFR 53; Glucose 103 mg/dL (83-110); Potassium 4.1 mmol/L (3.5-5.1); Sodium 140 mmol/L (136-145)
[2022-02-19 05:25] LABS: Magnesium 2.4 mg/dL (1.6-2.6)
[2022-02-19] MEDS: Furosemide 20 MG/2 ML VIAL SLOW IVP SCH ×2 (05:51→14:28)
[2022-02-19] MEDS: Morphine 2 MG/ML VIAL SLOW IVP PRN (05:51)
[2022-02-19 06:37] LABS: Anisocytosis SLIGHT = 6-15 cells (100X) (0-5/hpf); Band 1 % (5-11); Eosinophils 1 % (0-10); Hemoglobin 7.9 g/dL (14.0-18.0); Lymphocytes 21 % (21-51); MDiff Complete? YES; Mean Corpuscular HGB CONC 30.5 g/dL (32.0-36.0); Mean Corpuscular Hemoglobin 28.2 pg (27.0-31.0); Mean Corpuscular Volume 92.5 fL (78.0-98.0); Monocytes 10 % (0-10); Neutrophil 67 % (42-75); Nucleated RBC 9 % (0); Platelet Count 92 thou/uL (130-400); Platelet Morphology Comment Appears Decreased; White Blood Cell (WBC) Count 10.2 thou/uL (4.8-10.8)
[2022-02-19] MEDS: Calcium Carbonate 600 MG + Vit D TAB PO SCH ×2 (09:55→18:01)
[2022-02-19] MEDS: Thiamine 100 MG TAB PO SCH (09:56)
[2022-02-19] MEDS: Loratadine 10 MG TAB PO SCH (09:56)
[2022-02-19] MEDS: Aspirin 81 mg Enteric Coated Tablet PO SCH (09:56)
[2022-02-19] MEDS: Folic Acid 1 MG TAB PO SCH (09:56)
[2022-02-19] MEDS: Apixaban 5 MG TAB PO SCH ×2 (09:56→20:53)
[2022-02-19] MEDS: hydrALAZINE 10 MG TAB PO SCH ×3 (09:56→20:53)
[2022-02-19] MEDS: Multivit, Therapeutic 1 TAB PO SCH (09:56)
[2022-02-19] MEDS: Ondansetron PF 4 MG/2 ML Vial IVP PRN (10:16)
[2022-02-19] MEDS: Budesonide 0.5 MG/2 ML NEB NEB SCH ×2 (10:55→18:56)
[2022-02-19 16:36] LABS: QuantiFERON-TB Gold Plus Negative (Negative)
[2022-02-19] MEDS: Mirtazapine 30 MG Soltab PO SCH (20:53)
[2022-02-19] MEDS: pyridOXINE 50 MG (B6) TAB PO SCH (20:53)
[2022-02-19] MEDS: Cyanocobalamin (Vitamin B-12) 1,000 MCG TAB PO SCH (20:53)
[2022-02-20] MEDS: Ondansetron PF 4 MG/2 ML Vial IVP PRN (01:08)
[2022-02-20] MEDS: Furosemide 20 MG/2 ML VIAL SLOW IVP SCH ×2 (05:37→14:48)
[2022-02-20 07:15] LABS: Hemoglobin 6.5 g/dL (14.0-18.0); Mean Corpuscular HGB CONC 30.2 g/dL (32.0-36.0); Mean Corpuscular Hemoglobin 27.6 pg (27.0-31.0); Mean Corpuscular Volume 91.4 fL (78.0-98.0); RBC Distribution Width 15.2 % (11.5-14.5); Red Blood Cell (RBC) Count 2.36 mill/uL (4.70-6.10); White Blood Cell (WBC) Count 10.9 thou/uL (4.8-10.8)
[2022-02-20 07:45] LABS: Bite Cells SLIGHT = 2-5 cells (100X) (0-1/hpf); Hypochromia MODERATE=16-30 cells (100X) (0-5/hpf); Lymphocytes 13 % (21-51); MDiff Complete? YES; Mean Platelet Volume 13.5 fL (7.4-10.4); Monocytes 6 % (0-10); Neutrophil 81 % (42-75); Nucleated RBC 8 % (0); Platelet Count 100 thou/uL (130-400); Platelet Morphology Comment Appears Decreased; Polychromasia MODERATE = 3-4 cells (100X) (0-2/hpf)
[2022-02-20 07:51] LABS: Anion Gap 18 mmol/L (10-20); BUN (Urea Nitrogen) 62 mg/dL (8.4-25.7); Calc. Creatinine Clearance 36 mL/min (70-130); Calcium 8.7 mg/dL (7.8-10.44); Carbon Dioxide 24 mmol/L (23-31); Chloride 103 mmol/L (98-107); Estimated GFR 49; Glucose 106 mg/dL (83-110); Potassium 4.1 mmol/L (3.5-5.1); Sodium 141 mmol/L (136-145)
[2022-02-20] MEDS: Budesonide 0.5 MG/2 ML NEB NEB SCH ×2 (08:06→18:15)
[2022-02-20] MEDS: Calcium Carbonate 600 MG + Vit D TAB PO SCH ×2 (09:56→16:59)
[2022-02-20] MEDS: Loratadine 10 MG TAB PO SCH (09:56)
[2022-02-20] MEDS: Aspirin 81 mg Enteric Coated Tablet PO SCH (09:56)
[2022-02-20] MEDS: Apixaban 5 MG TAB PO SCH ×2 (09:56→20:25)
[2022-02-20] MEDS: Folic Acid 1 MG TAB PO SCH (09:56)
[2022-02-20] MEDS: Thiamine 100 MG TAB PO SCH (09:56)
[2022-02-20] MEDS: Multivit, Therapeutic 1 TAB PO SCH (09:56)
[2022-02-20] MEDS: hydrALAZINE 10 MG TAB PO SCH ×3 (09:57→20:25)
[2022-02-20] MEDS: Piperacillin/Tazobactam 3.375 GM in Sodium Chloride 0.9% 100 ML IVPB SCH ×2 (09:57→16:59)
[2022-02-20 19:30] VITALS: BP 107/56; TEMP 97.5
[2022-02-20] MEDS: Mirtazapine 30 MG Soltab PO SCH (20:25)
[2022-02-20] MEDS: pyridOXINE 50 MG (B6) TAB PO SCH (20:25)
[2022-02-20] MEDS: Cyanocobalamin (Vitamin B-12) 1,000 MCG TAB PO SCH (20:25)
== END 2022-02-20 20:45 | disposition hospice, home (50) | DRG 871 ==
LOC: ERS 13:47 → EDBD 16:34 → T4-A 16:34 → OBSVTOIN 16:34 → 2NO 02-12 13:38
PROVIDERS: ADMIT Internal Medicine; ATTEND Internal Medicine
PROC: 3E03329 Introduction of Other Anti-infective into Peripheral Vein, Percutaneous Approach (ICD-10-PCS; principal; 2022-02-06)
PROC: 02HV33Z Insertion of Infusion Device into Superior Vena Cava, Percutaneous Approach (ICD-10-PCS; 2022-02-17)
PROC: B518ZZA Fluoroscopy of Superior Vena Cava, Guidance (ICD-10-PCS; 2022-02-17)
DX: A41.9 Sepsis, unspecified organism (principal); G93.41 Metabolic encephalopathy; I26.99 Other pulmonary embolism without acute cor pulmonale; J18.9 Pneumonia, unspecified organism; J69.0 Pneumonitis due to inhalation of food and vomit; J96.01 Acute respiratory failure with hypoxia; I50.23 Acute on chronic systolic (congestive) heart failure; E87.20 Acidosis, unspecified; D68.9 Coagulation defect, unspecified; I13.0 Hypertensive heart and chronic kidney disease with heart failure and stage 1 through stage 4 chronic kidney disease, or unspecified chronic kidney disease; N17.9 Acute kidney failure, unspecified; Z66 Do not resuscitate; Z51.5 Encounter for palliative care; Z20.822 Contact with and (suspected) exposure to COVID-19; F41.9 Anxiety disorder, unspecified; F32.A Depression, unspecified; D53.9 Nutritional anemia, unspecified; N18.30 Chronic kidney disease, stage 3 unspecified; F03.90 Unspecified dementia, unspecified severity, without behavioral disturbance, psychotic disturbance, mood disturbance, and anxiety; E78.5 Hyperlipidemia, unspecified; E16.2 Hypoglycemia, unspecified; D69.6 Thrombocytopenia, unspecified; J44.9 Chronic obstructive pulmonary disease, unspecified; R13.10 Dysphagia, unspecified; R65.20 Severe sepsis without septic shock; Z79.899 Other long term (current) drug therapy; Z79.82 Long term (current) use of aspirin; Z95.0 Presence of cardiac pacemaker; Z78.1 Physical restraint status; Z85.118 Personal history of other malignant neoplasm of bronchus and lung
CPT/HCPCS: 36415; 36416; 36569; 36600; 70450; 71045; 71250; 71275; 74177; 74230; 76705; 80048; 80053; 81003; 81015; 82010; 82140; 82274; 82533; 82553; 82728; 82805; 83605; 83735; 83880; 84100; 84443; 84484; 85025; 85027; 85610; 85730; 86140; 86480; 86850; 86900; 86901; 87040; 87086; 87811; 93005; 93010; 93306; 93970; 94640; 94760; 96365; 96367; 96375; C1751; J0692; J0696; J1250; J1644; J1940; J2270; J2358; J2405; J2543; J3370; J3411; J3430; J3480; J3490; J7042; J7050; J7070; J7120; J7512; J7620; J7626; P9047; Q9967; S0028